=== PATIENT | male | born 1955 | race Caucasian/White ===

== ENCOUNTER 2019-06-28 07:50 | Day surgery (SDC) | payer MEDICARE, OTHER ==
[2019-06-25 15:33] LABS: HEMOGLOBIN 15.6 g/dL (13.5-17.5); MCH 31.5 pg (26.0-34.0); MCHC 34.7 g/dL (31.0-37.0); MCV 90.9 fL (80.0-100.0); MEAN PLATELET VOLUME 10.2 fL (7.4-10.4); RBC 4.95 10x6/uL (4.20-6.10); RDW 12.5 % (11.5-14.5); WBC 4.9 10x3/uL (4.8-10.8)
[~2019-06-28] VITALS: Ht 180.3 cm; Wt 71.7 kg
--- NOTE | ~2019-06-28 | OP ---
PATIENT NAME: FAYE HILTON MEDICAL RECORD: [id number] :51 LOCATION:D.[facility] ADMISSION DATE: SURGEON: PRISCILLA NGUYEN MD DATE OF OPERATION: 06/28/2019 PREOPERATIVE DIAGNOSES: 1. Thrombosed external hemorrhoid. 2. Benign prostatic hypertrophy. POSTOPERATIVE DIAGNOSES: 1. Thrombosed external hemorrhoid. 2. Benign prostatic hypertrophy. PROCEDURE: Left lateral hemorrhoidectomy. SURGEON: Priscilla Nguyen MD REPORT OF PROCEDURE: The patient's perianal region was prepped and draped in sterile fashion. A [place] anoscope was then used to investigate the patient's anal region in 360-degree fashion. I did not see any evidence of any internal hemorrhoids. The patient had a left lateral external hemorrhoid which was firm and thrombosed. Suture was placed at the base of this hemorrhoid using a 2-0 chromic and this was tied down tightly. Electrocautery was used to dissect off the hemorrhoid from the sphincter musculature with care taken not to injure these structures. Once the hemorrhoid was completely excised and the wound was irrigated out with normal saline and any bleeding was treated with electrocautery. We closed up the opening in a running locked fashion with the 2-0 chromic. At this point, the area was irrigated out and a piece of Gelf[place] dipped in [place] was placed in the anus. COMPLICATIONS: None. CONDITION: Stable. ANESTHESIA: General endotracheal. BLOOD LOSS: Minimal. TRANSINT:[id number] Voice Confirmation ID: [id number] DOCUMENT ID: [id number] PRISCILLA NGUYEN MD CC: MAVERICK HERR [id number] DICTATION DATE: 06/28/19 1330 [employer] ST[employer]TER: 06/28/19 1842 [facility] [address] [id number]
[~2019-06-28 07:50] MED LIST: FLOMAX0.4 MG PO
[2019-06-28 08:28] VITALS: BP 112/69; Ht 180.3 cm; Wt 71.7 kg
[2019-06-28] MEDS ORDERED: HYDROCODON-ACE1 EA10 PO (13:27)
== END 2019-06-28 16:25 | disposition home or self-care (01) ==
LOC: D.OPS 07:50 → D.PAN 10:00 → D.OPS 10:00
PROVIDERS: Anesthesiology; ATTEND Surgery
DX: K64.5 Perianal venous thrombosis (principal); N40.0 Benign prostatic hyperplasia without lower urinary tract symptoms